=== PATIENT | male | born 1960 | race Caucasian/White ===

== ENCOUNTER 2025-05-17 07:50 | Outpatient (CLI) | payer OTHER ==
--- NOTE | 2025-05-17 15:50 | DVH ---
EXAM: NM NM BONE 3 PHASE History: FAILED TOTAL LEFT KNEE REPLACEMENT Comparison Study: None TECHNIQUE: Immediately after the radiopharmaceutical, flow images of the were acquired, followed by blood pool images of the bilateral knees. Then, approximately 3 hours later, additional image s of the were acquired. Anterior and posterior whole body images were also acquired. CONTRAST MEDIA AND RADIOPHARMACEUTICALS: FINDINGS: Flow images demonstrate no evidence of abnormal increased radiotracer uptake . Blood pool images demonstrate no areas of hyperemia. Delayed images demonstrate focal radiotracer uptake along the right medial tibia and distal left fem ur and proximal tibia. IMPRESSION: 1. No abnormal radiotracer uptake along the left knee prosthesis to suggest infection or loosening. 2. Mild radiotracer uptake along the left distal femur and proximal tibia favored postprocedural hilliard ges. 3. Minimal degenerative uptake along the right knee.
== END 2025-05-17 17:00 | disposition home or self-care (01) ==
LOC: XYW 07:50
PROVIDERS: ATTEND Orthopaedic Surgery Adult Reconstructive Orthopaedic Surgery
DX: T84.093D Other mechanical complication of internal left knee prosthesis, subsequent encounter (principal); Z96.651 Presence of right artificial knee joint; Y92.89 Other specified places as the place of occurrence of the external cause
CPT/HCPCS: 78315; A9503